=== PATIENT | male | born 1970 | race Caucasian/White ===

== ENCOUNTER 2017-08-17 19:30 | Emergency (ER) | payer BC, MEDICAID ==
[2017-08-17] MEDS ORDERED: Ondansetron 4 MG Tab.DIS PO ONE (19:31)
[2017-08-17 19:52] VITALS: BP 151/87
[2017-08-17 20:03] LABS: CHLORIDE,CL 101 mEq/L (98-106); SODIUM,NA 139 mEq/L (136-145)
[2017-08-17] MEDS ORDERED: Sodium Chloride 0.9% 1,000 ML IV ONE (20:24)
[2017-08-17] MEDS ORDERED: Ondansetron 8 MG in Sodium Chloride 0.9% 50 ML IV PRN (20:26)
--- NOTE | 2017-08-17 20:56 | EDM.PDOC ---
ED HPI GENERAL MEDICAL PROBLEM - General Chief Complaint: Gastrointestinal Problem Stated Complaint: "THROWING UP BLOOD" Time Seen by Provider: 08/17/17 19:58 Source of Information: Reports: Patient History Limitations: Reports: No Limitations - History of Present Illness INITIAL COMMENTS - FREE TEXT/NARRATIVE: Holden is a 47 yo male who presents to the ER via private vehicle tonight with concerns of nausea and dry heaves. States he woke up this morning and had a drink of Vodka. Admits to about 1 pint per day of Vodka use. States around noon he had another drink. Admits to just not feeling well all day and felt oozy. States he got to work around 1545 this afternoon and started dry heaving. Admits to some blood tinged sputum. Isn't sure if the blood came from his nose as he had a bloody nose as well. States he started to become lightheaded as well. Denies any food today as to feeling nauseated. States he has been dealing with a lot of stress and anxiety. Currently is being treated in [facility]. States he is on 3 anxiety/depression medications. Also has ADHD and takes Vyvanse for that. Admits he usually has some Xanax at home and when he has alcohol withdrawals or a lot of anxiety, will take a pill. Context: Reports: Sick Contact Abdomen Pain Score (Numeric/FACES): 7 - Related Data Allergies Allergy/AdvReac Type Severity Reaction Status Date / Time No Known Allergies Allergy Verified 08/17/17 19:46 Past Medical History Cardiovascular History: Reports: Hypertension Psychiatric History: Reports: Anxiety, Depression Endocrine/Metabolic History: Reports: Diabetes, Type II, Obesity/BMI 30+ - Past Surgical History GI Surgical History: Reports: Appendectomy, Hernia, Abdominal Musculoskeletal Surgical History: Reports: Arthroscopic Knee Social & Family History - Tobacco Use Smoking Status *Q: Never Smoker Second Hand Smoke Exposure: No - Alcohol Use Days Per Week of Alcohol Use: 7 Number of Drinks Per Day: 7 Total Drinks Per Week: 49 - Recreational Drug Use Recreational Drug Use: No Drug Use in Last 12 Months: No ED ROS GENERAL - Review of Systems Review Of Systems: See Below Constitutional: Reports: Decreased Appetite. Denies: Fever, Chills HEENT: Reports: Nosebleed, Rhinitis. Denies: Throat Pain, Throat Swelling, Vertigo, Vision Change Respiratory: Reports: Cough. Denies: Shortness of Breath, Wheezing Cardiovascular: Reports: Lightheadedness. Denies: Chest Pain, Blood Pressure Problem, Palpitations GI/Abdominal: Reports: Abdominal Pain, Hematemesis, Nausea, Vomiting. Denies: Bloody Stool, Constipation, Diarrhea : Reports: No Symptoms Skin: Reports: No Symptoms Neurological: Reports: Dizziness, Headache. Denies: Trouble Speaking, Difficulty Walking Psychiatric: Reports: Anxiety, Depression ED EXAM, GI/ABD - Physical Exam Exam: See Below Exam Limited By: No Limitations General Appearance: Alert, Mild Distress, Other (emesis X 1 after drinking sips of water, no gross blood noted in vomit) Eyes: Bilateral: Normal Appearance Ears: Normal External Exam, Normal Canal, Hearing Grossly Normal, Normal TMs Nose: Normal Inspection, Other (residual blood in right nare, no active emesis) Throat/Mouth: Normal Inspection, Normal Lips, Normal Teeth, Normal Gums, Normal Oropharynx, Normal Voice, No Airway Compromise Head: Atraumatic, Normocephalic Neck: Normal Inspection, Supple, Non-Tender Respiratory/Chest: No Respiratory Distress, Lungs Clear, Normal Breath Sounds, No Accessory Muscle Use Cardiovascular: Regular Rate, Rhythm, No Murmur GI/Abdominal Exam: Normal Bowel Sounds, Soft, Non-Tender, No Organomegaly, No Distention, Other (obese) Extremities: Normal Inspection Neurological: Alert, Oriented, No Motor/Sensory Deficits Psychiatric: Normal Affect, Normal Mood Skin Exam: Warm, Dry, Intact, Normal Color, No Rash Course - Vital Signs Last Recorded V/S: Last Vital Signs Temp 97.2 F 08/17/17 19:51 Pulse 82 08/17/17 19:51 Resp 20 08/17/17 19:51 BP 151/87 H 08/17/17 19:51 Pulse Ox 94 L 08/17/17 19:51 - Orders/Labs/Meds Orders: Active Orders 24 hr Category Date Time Status CXR [Chest 2V] [CR] Stat Exams 08/17/17 19:49 Taken Ondansetron [Zofran] 8 mg Med 08/17/17 20:26 Active Sodium Chloride 0.9% [Normal Saline] 50 ml IV Q8H Sodium Chloride 0.9% [Normal Saline] 1,000 ml Med 08/17/17 20:24 Active IV .BOLUS EKG 12 Lead [EK] Routine Ther 08/17/17 20:05 Ordered Medication Orders Sodium Chloride (Normal Saline) 1,000 mls @ 999 mls/hr IV .BOLUS ONE Stop: 08/17/17 21:24 Last Admin: 08/17/17 20:47 Dose: 999 mls/hr Ondansetron HCl 8 mg/ Sodium (Chloride) 54 mls @ 100 mls/hr IV Q8H PRN PRN Reason: Vomiting Labs: Laboratory Tests 08/17/17 08/17/17 08/17/17 Range/Units 19:45 19:45 20:16 WBC 9.8 (5.0-10.0) 10^3/uL RBC 5.20 (4.50-6.00) 10^6/uL Hgb 17.3 (14.0-18.0) g/dL Hct 48.7 (40.0-54.0) % MCV 93.7 (82.0-94.0) fL MCH 33.3 H (27.0-32.0) pg MCHC 35.5 (33.0-38.0) g/dL RDW Coeff of Ileana 13.7 (11.0-15.0) % Plt Count 317 (150-400) 10^3/uL Neut % (Auto) 70.4 (35-85) % Lymph % (Auto) 21.6 (10-55) % [place] % (Auto) 6.7 (0-16) % Eos % (Auto) 0.8 (0-5) % Baso % (Auto) 0.5 (0-3) % Neut # (Auto) 6.92 (1.80-7.00) 10^3/uL Lymph # (Auto) 2.12 (1.00-4.80) 10^3/uL [place] # (Auto) 0.66 (0.00-0.80) 10^3/uL Eos # (Auto) 0.08 (0.00-0.45) 10^3/uL Baso # (Auto) 0.05 10^3/uL Sodium 139 (136-145) mEq/L Potassium 3.9 (3.5-5.0) mEq/L Chloride 101 (98-106) mEq/L Carbon Dioxide 25 (21-32) mmol/L BUN 16 (7-18) mg/dL Creatinine 0.8 (0.7-1.3) mg/dL Est Cr Clr Drug Dosing 107.87 mL/min Estimated GFR (MDRD) > 60 (>=60) mL/min Glucose 268 H (75-99) mg/dL Calcium 8.9 (8.4-10.1) mg/dL Total Bilirubin 0.5 (0.0-1.0) mg/dL AST 22 (15-37) U/L ALT 67 (12-78) U/L Alkaline Phosphatase 73 (46-116) U/L Creatine Kinase 122 (35-232) U/L Troponin I < 0.017 (0.00-0.06) ng/mL C-Reactive Protein < 0.2 L (0.2-0.8) mg/dL Total Protein 7.8 (6.4-8.2) g/dL Albumin 4.0 (3.4-5.0) g/dL Amylase 40 (25-115) U/L Urine Color Yellow (YELLOW) Urine Appearance Clear (CLEAR) Urine pH 6.0 (4.5-8.0) Ur Specific [place] 1.015 (1.003-1.020) Urine Protein Trace H (NEGATIVE) mg/dL Urine Glucose (UA) 500 H (NEGATIVE) mg/dL Urine Ketones Negative (NEGATIVE) mg/dL Urine Occult Blood Negative (NEGATIVE) Urine Nitrite Negative (NEGATIVE) Urine Bilirubin Negative (NEGATIVE) Urine Urobilinogen 0.2 (0.2-1.0) EU/dL Ur Leukocyte Esterase Negative (NEGATIVE) Urine RBC Not seen (0-5) /HPF Urine WBC Not seen (0-5) /HPF Meds: Medications Generic Name Dose Route Start Last Admin Trade Name Freq PRN Reason Stop Dose Admin Sodium Chloride 1,000 mls @ 999 mls/hr 08/17/17 20:24 08/17/17 20:47 Normal Saline IV 08/17/17 21:24 999 mls/hr .BOLUS ONE Administration Ondansetron HCl 8 mg/ Sodium 54 mls @ 100 mls/hr 08/17/17 20:26 Chloride IV Q8H PRN Vomiting Departure - Departure Time of Disposition: 22:00 Disposition: Home, Self-Care 01 Clinical Impression: Vomiting, Alcoholism - Discharge Information Instructions: Abdominal Pain, Adult, [id number], Nausea and Vomiting, Adult, [id number] Additional Instructions: Laboratory work was grossly unremarkable. Cardiac work up was negative. EKG showed normal heart rythym. Take Zofran 4-8 mg every 6 hours as needed for nausea. Take home pack given Recommend following up with psychiatry in regards to anxiety medications Establish care with Dr. Mccall or Dr. Ugarte in clinic, recommend scheduling appointment If any active emesis with gross blood, as discussed, advised returning immediately Will send home after bolus of IV fluids. - Problem List & Annotations (1) Alcoholism SNOMED Code(s): 9679072 Code(s): F10.20 - ALCOHOL DEPENDENCE, UNCOMPLICATED Status: Acute (2) Vomiting SNOMED Code(s): 536751472 Code(s): R11.10 - VOMITING, UNSPECIFIED Status: Acute - Problem List Review Problem List Initiated/Reviewed/Updated: Yes - My Orders Last 24 Hours: My Active Orders 08/17/17 19:49 CXR [Chest 2V] [CR] Stat 08/17/17 20:05 EKG 12 Lead [EK] Routine 08/17/17 20:24 Sodium Chloride 0.9% [Normal Saline] 1,000 ml IV .BOLUS 08/17/17 20:26 Ondansetron [Zofran] 8 mg Sodium Chloride 0.9% [Normal Saline] 50 ml IV Q8H - Assessment/Plan Last 24 Hours: My Active Orders 08/17/17 19:49 CXR [Chest 2V] [CR] Stat 08/17/17 20:05 EKG 12 Lead [EK] Routine 08/17/17 20:24 Sodium Chloride 0.9% [Normal Saline] 1,000 ml IV .BOLUS 08/17/17 20:26 Ondansetron [Zofran] 8 mg Sodium Chloride 0.9% [Normal Saline] 50 ml IV Q8H Plan: See additional instructions. No further emesis noted while receiving IV Zofran and 1 liter bolus of NS. Will discharge home with further instructions.
[2017-08-17] MEDS ORDERED: Take Home: Ondansetron 4 MG Tab.DIS, 2 Tab Pack PO ONE (21:04)
== END 2017-08-17 22:15 | disposition home or self-care (01) ==
LOC: CC.ED 19:30
DX: F10.20 Alcohol dependence, uncomplicated (principal); I10 Essential (primary) hypertension; F41.9 Anxiety disorder, unspecified; F32.9 Major depressive disorder, single episode, unspecified; E11.9 Type 2 diabetes mellitus without complications; E66.9 Obesity, unspecified; Z90.89 Acquired absence of other organs; Z68.42 Body mass index [BMI] 45.0-49.9, adult
CPT/HCPCS: 36415; 71020; 80053; 81001; 82150; 82550; 84484; 85025; 86140; 93005; 96361; 96365; 99285; A9270; J2405; J7030; J7050

== ENCOUNTER 2018-01-10 20:19 | Emergency (ER) | payer BC, MEDICAID ==
[2018-01-10 20:30] VITALS: BP 163/98
[2018-01-10 20:45] LABS: CHLORIDE,CL 101 mEq/L (98-106); SODIUM,NA 141 mEq/L (136-145)
[2018-01-10] MEDS ORDERED: Ondansetron 4 MG/2 ML SDV IVPUSH PRN (20:54)
[2018-01-10] MEDS ORDERED: Take Home: Ondansetron 4 MG Tab.DIS, 2 Tab Pack PO ONE (21:02)
[2018-01-10] MEDS ORDERED: Sodium Chloride 0.9% 1,000 ML IV ONE (21:04)
--- NOTE | 2018-01-10 21:09 | EDM.PDOC ---
ED HPI GENERAL MEDICAL PROBLEM - General Chief Complaint: Gastrointestinal Problem Stated Complaint: vomiting Time Seen by Provider: 01/10/18 20:50 - History of Present Illness INITIAL COMMENTS - FREE TEXT/NARRATIVE: Holden is a 47 year old male who presents to the ED with c/o nausea and vomiting. He reports that he has "been vomiting all day." He reports that it is alcohol induced and that he is an alcoholic that drinks "about a quart" on his days off. He reports that he has been through treatment without success in the past. He denies any abdominal pain, blood in his vomit, diarrhea, constipation, decreased appetite, chest pain, and shortness of breath. Does report he has had a "chest cold" and has been coughing some. He reports his last drink of alcohol was last night. He denies any suicidal or homicidal thoughts or ideation. He does report a history of depression. Discusses that his recently left him and that "hasn't made things easier." He reports that he has 2 days off a week and these are the days he drinks. He reports he drank yesterday on his day off. He reports that he is able to refrain from alcohol use while working. BP is elevated. He reports he did not take his BP medications today. Onset: Today Duration: Intermittent Associated Symptoms: Reports: Nausea/Vomiting. Denies: Confusion, Chest Pain, Cough, cough w sputum, Diaphoresis, Fever/Chills, Headaches, Loss of Appetite, Malaise, Rash, Seizure, Shortness of Breath, Syncope, Weakness - Related Data Allergies Allergy/AdvReac Type Severity Reaction Status Date / Time No Known Allergies Allergy Verified 01/10/18 20:30 Home Meds: Home Meds Metoprolol Tartrate 100 mg PO 0300,1500 08/17/17 [History] metFORMIN HCl [Metformin HCl] 1,000 mg PO 0300,1500 08/17/17 [History] Cholecalciferol (Vitamin D3) [Vitamin D3] 5,000 unit PO 1500 11/20/17 [History] Cyanocobalamin (Vitamin B-12) [Vitamin B-12] 1,000 mcg PO 1500 11/20/17 [History ] Cyclobenzaprine [Flexeril] 10 mg PO DAILY PRN 11/20/17 [History] Escitalopram [Lexapro] 15 mg PO 1500 11/20/17 [History] Magnesium Oxide [Magnesium] 500 mg PO 1500 11/20/17 [History] Multivitamin [Daily Multiple Vitamin] 1 tab PO 1500 11/20/17 [History] buPROPion [Wellbutrin XL] 150 mg PO DAILY 11/20/17 [History] LORazepam [Ativan] 1 mg PO Q8H #20 tablet 11/21/17 [Rx] Omeprazole 20 mg PO DAILY #30 cap.cr 11/21/17 [Rx] Past Medical History Cardiovascular History: Reports: Hypertension Psychiatric History: Reports: Anxiety, Depression Endocrine/Metabolic History: Reports: Diabetes, Type II, Obesity/BMI 30+ - Past Surgical History GI Surgical History: Reports: Appendectomy, Hernia, Abdominal Musculoskeletal Surgical History: Reports: Arthroscopic Knee Social & Family History - Family History Family Medical History: Noncontributory - Tobacco Use Smoking Status *Q: Never Smoker Used Tobacco, but Quit: Yes Month Tobacco Last Used: 1 year ago Second Hand Smoke Exposure: No - Caffeine Use Caffeine Use: Reports: Coffee - Alcohol Use Days Per Week of Alcohol Use: 2 Number of Drinks Per Day: 10 Total Drinks Per Week: 20 - Recreational Drug Use Recreational Drug Use: No Drug Use in Last 12 Months: No ED ROS GENERAL - Review of Systems Review Of Systems: ROS reveals no pertinent complaints other than HPI. ED EXAM, GI/ABD - Physical Exam Exam: See Below Exam Limited By: No Limitations General Appearance: Alert, WD/WN, No Apparent Distress Eyes: Bilateral: EOMI Throat/Mouth: Normal Inspection, Normal Lips, Normal Teeth, Normal Gums, Normal Oropharynx, Normal Voice, No Airway Compromise Head: Atraumatic, Normocephalic Neck: Normal Inspection, Supple, Non-Tender, Full Range of Motion Respiratory/Chest: No Respiratory Distress, Lungs Clear, Normal Breath Sounds, No Accessory Muscle Use, Chest Non-Tender Cardiovascular: Normal Peripheral Pulses, Regular Rate, Rhythm, No Edema, No Gallop, No JVD, No Murmur, No Rub GI/Abdominal Exam: Normal Bowel Sounds, Soft, Non-Tender, No Organomegaly, No Distention, No Abnormal Bruit, No Mass, Pelvis Stable Neurological: Alert, Oriented, CN II-XII Intact, Normal Cognition, Normal Gait, Normal Reflexes, No Motor/Sensory Deficits Psychiatric: Normal Affect, Normal Mood Skin Exam: Warm, Dry, Intact, Normal Color, No Rash Lymphatic: No Adenopathy Course - Vital Signs Last Recorded V/S: Last Vital Signs Temp 98.8 F 01/10/18 20:19 Pulse 115 H 01/10/18 20:19 Resp 20 01/10/18 20:19 BP 163/98 H 01/10/18 20:19 Pulse Ox 96 01/10/18 20:19 - Orders/Labs/Meds Labs: Laboratory Tests 01/10/18 01/10/18 Range/Units 20:25 20:25 WBC 7.4 (5.0-10.0) 10^3/uL RBC 5.14 (4.50-6.00) 10^6/uL Hgb 17.0 (14.0-18.0) g/dL Hct 48.2 (40.0-54.0) % MCV 93.8 (82.0-94.0) fL MCH 33.1 H (27.0-32.0) pg MCHC 35.3 (33.0-38.0) g/dL RDW Coeff of Ileana 12.5 (11.0-15.0) % Plt Count 315 (150-400) 10^3/uL Neut % (Auto) 57.6 (35-85) % Lymph % (Auto) 32.9 (10-55) % [place] % (Auto) 8.2 (0-16) % Eos % (Auto) 0.8 (0-5) % Baso % (Auto) 0.5 (0-3) % Neut # (Auto) 4.28 (1.80-7.00) 10^3/uL Lymph # (Auto) 2.45 (1.00-4.80) 10^3/uL [place] # (Auto) 0.61 (0.00-0.80) 10^3/uL Eos # (Auto) 0.06 (0.00-0.45) 10^3/uL Baso # (Auto) 0.04 10^3/uL Sodium 141 (136-145) mEq/L Potassium 4.1 (3.5-5.0) mEq/L Chloride 101 (98-106) mEq/L Carbon Dioxide 27 (21-32) mmol/L BUN 12 (7-18) mg/dL Creatinine 0.7 (0.7-1.3) mg/dL Est Cr Clr Drug Dosing 123.28 mL/min Estimated GFR (MDRD) > 60 (>=60) mL/min Glucose 197 H (75-99) mg/dL Calcium 8.8 (8.4-10.1) mg/dL Total Bilirubin 0.4 (0.0-1.0) mg/dL AST 28 (15-37) U/L ALT 77 (12-78) U/L Alkaline Phosphatase 92 (46-116) U/L C-Reactive Protein < 0.2 L (0.2-0.8) mg/dL Total Protein 7.6 (6.4-8.2) g/dL Albumin 4.0 (3.4-5.0) g/dL Meds: Medications Discontinued Medications Generic Name Dose Route Start Last Admin Trade Name Freq PRN Reason Stop Dose Admin Sodium Chloride 1,000 mls @ 999 mls/hr 01/10/18 21:04 Normal Saline IV 01/10/18 22:04 .BOLUS ONE Ondansetron HCl 4 mg 01/10/18 20:54 Zofran IVPUSH Q6H PRN Nausea/Vomiting Ondansetron HCl 2 packet 01/10/18 21:02 Take Home: Ondansetron Odt 4 Mg, 2 Tab Pack PO 01/10/18 21:03 ONETIME ONE - Re-Assessments/Exams Free Text/Narrative Re-Assessment/Exam: 01/10/18 21:03 Discussed lab results with patient. He asks if he can be admitted to the hospital overnight. I discussed with him that his labs are all normal and I have no reason to admit him. Discussed that his chest cold is likely viral in nature. WBC count is normal. Offered to give him some IVF and IV zofran. 01/10/18 21:05 Patient sent down to same day care for IVF and nausea medications. 01/10/18 21:08 Patient refuses to stay for IVF and medicatons. Wants to leave and go home. He reports he just wants to go home if he's not going to be admitted, take his metoprolol, and go to bed. Patient signed refusal of treatment form and left. I personally discussed with him that fluids and zofran medications would help and he shook his head and walked away. Departure - Departure Time of Disposition: 21:11 Disposition: Against Medical Advice 07 Condition: Good Clinical Impression: Alcohol abuse, Alcoholism Vomiting Qualifiers: Vomiting type: unspecified Vomiting Intractability: non-intractable Nausea presence: with nausea Qualified Code(s): R11.2 - Nausea with vomiting, unspecified - Discharge Information Instructions: Alcohol Use Disorder, Nausea and Vomiting, Adult, Finding Treatment for Addiction Referrals: Dennis Ugarte MD [Primary Care Provider] - Forms: ED Department Discharge Additional Instructions: Zofran as needed for nausea/vomiting Small frequent meals [place] diet until nausea resolves No alcohol use Follow up as scheduled with Dr. Ugarte Patient left prior to receiving written instructions, but these were discussed with him
== END 2018-01-10 21:24 | disposition left against medical advice (07) ==
LOC: CC.ED 20:19
DX: F10.20 Alcohol dependence, uncomplicated (principal); I10 Essential (primary) hypertension; E11.9 Type 2 diabetes mellitus without complications; Z79.899 Other long term (current) drug therapy
CPT/HCPCS: 36415; 80053; 85025; 86140; 99284

== ENCOUNTER 2018-02-12 16:55 | Emergency (ER) | payer BC, MEDICAID ==
[2018-02-12] MEDS ORDERED: Amoxicillin/Clavulanate K 875-125 MG Tab PO ONE (16:56)
[2018-02-12 16:58] VITALS: BP 142/80
[2018-02-12] MEDS ORDERED: Take Home: Amoxicillin/Clavulanate K 875-125 MG Tab, 2 Tab Pack PO ONE (17:01)
--- NOTE | 2018-02-12 17:07 | EDM.PDOC ---
ED HPI GENERAL MEDICAL PROBLEM - General Chief Complaint: General Stated Complaint: bleeding in R ear Time Seen by Provider: 02/12/18 16:55 Source of Information: Reports: Patient History Limitations: Reports: No Limitations - History of Present Illness INITIAL COMMENTS - FREE TEXT/NARRATIVE: This patient is a 48 year old male that presents to the ER. Patient reports on Wednesday he lost hearing from his left ear. Patient reports that he attempted to clean his ears this morning with a q-tip. He reports he noticed some mild blood on q-tip from right ear. He then he went to work today, put ear plgus in and it felt like something was in his ear. He reports he pulled ear plug and then stuck piny finger in his right ear as well. He reports his finger and ear plug both had blood. Patient reports there is no pain, reports mild dizziness, and decreased hearing from the right ear. Patient denies peña, n, v, d, f, congestion , drainage, sore throat, neck pain. Onset: Today Location: Reports: Other (right ear) Severity: Mild Improves with: Reports: None Worsens with: Reports: None Associated Symptoms: Reports: No Other Symptoms. Denies: Confusion, Chest Pain , Cough, cough w sputum, Diaphoresis, Fever/Chills, Headaches, Loss of Appetite , Malaise, Nausea/Vomiting, Rash, Seizure, Shortness of Breath, Syncope, Weakness - Related Data Allergies Allergy/AdvReac Type Severity Reaction Status Date / Time No Known Allergies Allergy Verified 02/12/18 16:58 Home Meds: Home Meds Metoprolol Tartrate 100 mg PO 0300,1500 08/17/17 [History] metFORMIN HCl [Metformin HCl] 1,000 mg PO 0300,1500 08/17/17 [History] Cholecalciferol (Vitamin D3) [Vitamin D3] 5,000 unit PO 1500 11/20/17 [History] Cyanocobalamin (Vitamin B-12) [Vitamin B-12] 1,000 mcg PO 1500 11/20/17 [History ] Cyclobenzaprine [Flexeril] 10 mg PO DAILY PRN 11/20/17 [History] Escitalopram [Lexapro] 15 mg PO 1500 11/20/17 [History] Magnesium Oxide [Magnesium] 500 mg PO 1500 11/20/17 [History] Multivitamin [Daily Multiple Vitamin] 1 tab PO 1500 11/20/17 [History] buPROPion [Wellbutrin XL] 150 mg PO DAILY 11/20/17 [History] Omeprazole 20 mg PO DAILY #30 cap.cr 11/21/17 [Rx] atoMOXetine HCl [Strattera] 80 mg PO DAILY 02/12/18 [History] Past Medical History Cardiovascular History: Reports: Hypertension Psychiatric History: Reports: Anxiety, Depression Endocrine/Metabolic History: Reports: Diabetes, Type II, Obesity/BMI 30+ - Past Surgical History GI Surgical History: Reports: Appendectomy, Hernia, Abdominal Musculoskeletal Surgical History: Reports: Arthroscopic Knee Social & Family History - Family History Family Medical History: Noncontributory - Tobacco Use Smoking Status *Q: Never Smoker Used Tobacco, but Quit: Yes Month/Year Tobacco Last Used: 1 year ago Second Hand Smoke Exposure: No - Caffeine Use Caffeine Use: Reports: Coffee, Energy Drinks, Soda - Alcohol Use Days Per Week of Alcohol Use: 7 Number of Drinks Per Day: 7 Total Drinks Per Week: 49 - Recreational Drug Use Recreational Drug Use: No Drug Use in Last 12 Months: No ED ROS GENERAL - Review of Systems Review Of Systems: See Below Constitutional: Reports: No Symptoms HEENT: Reports: Ear Discharge (blood), Hearing Loss (right ear decreased). Denies: Dental Pain, Ear Pain, Eye Discharge, Eye Pain, Nosebleed, Nose Pain, Rhinitis, Sinus Problem, Throat Pain, Throat Swelling, Vertigo, Vision Change Respiratory: Reports: No Symptoms Cardiovascular: Reports: No Symptoms Endocrine: Reports: No Symptoms GI/Abdominal: Reports: No Symptoms : Reports: No Symptoms Musculoskeletal: Reports: No Symptoms Skin: Reports: No Symptoms Neurological: Reports: No Symptoms Psychiatric: Reports: No Symptoms Hematologic/Lymphatic: Reports: No Symptoms Immunologic: Reports: No Symptoms ED EXAM, GENERAL - Physical Exam Exam: See Below Exam Limited By: No Limitations General Appearance: Alert, WD/WN, No Apparent Distress Eye Exam: Bilateral Eye: Normal Inspection, PERRL Ears: Normal External Exam, Hearing Grossly Normal, Other (Left TM normal. Right TM blood, appears to be small TM rupture at about 6 o clock. Errythema. ) Ear Exam: Right Ear: Bleeding, TM Red, TM Perforation Nose: Normal Inspection, Normal Mucosa, No Blood Throat/Mouth: Normal Inspection, Normal Lips, Normal Teeth, Normal Gums, Normal Oropharynx, Normal Voice, No Airway Compromise Head: Atraumatic, Normocephalic Neck: Normal Inspection, Supple, Non-Tender, Full Range of Motion Respiratory/Chest: No Respiratory Distress, Lungs Clear, Normal Breath Sounds, No Accessory Muscle Use Cardiovascular: Normal Peripheral Pulses, Regular Rate, Rhythm, No Edema, No Gallop, No JVD, No Murmur, No Rub Back Exam: Normal Inspection Extremities: Normal Inspection Neurological: Alert, Oriented Psychiatric: Normal Affect, Normal Mood Skin Exam: Warm, Dry, Intact, Normal Color, No Rash Lymphatic: No Adenopathy Course - Vital Signs Last Recorded V/S: Last Vital Signs Temp 97.2 F 02/12/18 16:56 Pulse 82 02/12/18 16:56 Resp 16 02/12/18 16:56 BP 142/80 H 02/12/18 16:56 Pulse Ox 97 02/12/18 16:56 Departure - Departure Time of Disposition: 17:02 Disposition: Home, Self-Care 01 Condition: Good Clinical Impression: Otitis media, serous, TM rupture Otitis media Qualifiers: Otitis media type: suppurative Chronicity: acute Laterality: right Recurrence: not specified as recurrent Spontaneous tympanic membrane rupture: with spontaneous rupture Qualified Code(s): H66.011 - Acute suppurative otitis media with spontaneous rupture of ear drum, right ear - Discharge Information Instructions: Otitis Media, Adult, [id number], Eardrum Rupture, Adult Forms: ED Department Discharge Additional Instructions: Followup with your primary care provider Return to the ER for worsening of condition or any emergent concerns Augmentin 875mg 1 pill twice a day for 10 days total #2 take home from ER, #18 no refill Ciprofloxacin otic twyla 0.2% 0.25ml in right ear twice a day for 7 days #suff qty no refill No work today - Assessment/Plan Plan: PLEASE SEE RN NOTE FOR PFSH.
== END 2018-02-12 17:26 | disposition home or self-care (01) ==
LOC: CC.ED 16:55
DX: H66.011 Acute suppurative otitis media with spontaneous rupture of ear drum, right ear (principal); I10 Essential (primary) hypertension; F41.9 Anxiety disorder, unspecified; F32.9 Major depressive disorder, single episode, unspecified; E11.9 Type 2 diabetes mellitus without complications; E66.9 Obesity, unspecified; Z79.84 Long term (current) use of oral hypoglycemic drugs; Z79.899 Other long term (current) drug therapy
CPT/HCPCS: 99282; A9270